=== PATIENT | female | born 1975 | race Caucasian/White ===

== ENCOUNTER → 2017-03-06 | Outpatient (CLI) | payer BC ==
[~2017-03-06] MED LIST: CATAFLAM50 MG PO; Copaxone 20M20 MG/ML IM; HYDROCODONE BIT1 T11 PO; PROVIGIL200 MG PO; VITAMIN D5000 I2 PO
== END | disposition home or self-care (01) ==
LOC: US 01:52
DX: C73 Malignant neoplasm of thyroid gland (principal); E89.0 Postprocedural hypothyroidism

== ENCOUNTER → 2018-03-08 | Outpatient (CLI) | payer BC ==
[2018-03-08 16:47] LABS: BASO # 0.1 10*3/uL (0.0-0.1); BASO % 0.7 % (0.0-1.0); EOS # 0.2 10*3/uL (0.0-0.4); EOS % 1.7 % (1.0-4.0); HEMATOCRIT 46.3 % (37.0-47.0); HEMOGLOBIN 15.3 g/dl (12.0-16.0); LYMPH # 3.6 10*3/uL (1.3-4.4); LYMPH % 28.4 % (27.0-41.0); MEAN CORPUSCULAR HGB 29.1 pg (27.0-31.0); MEAN PLATELET VOLUME 9.2 fl (9.6-12.3); MONO # 0.8 10*3/uL (0.1-1.0); MONO % 6.2 % (3.0-9.0); NEUT # 7.9 10*3/uL (2.3-7.9); NEUT % 62.4 % (47.0-73.0); PLATELET COUNT AUTOMATED 329 10*3/uL (130-400); RED BLOOD COUNT 5.26 10*6/uL (4.10-5.10); WHITE BLOOD COUNT 12.6 10*3/uL (4.8-10.8)
[2018-03-08 17:05] LABS: ALBUMIN 3.7 gm/dl (3.1-4.5); ALKALINE PHOSPHATASE 114 U/L (45-117); BUN 10 mg/dl (7-24); CHLORIDE 106 mmol/L (98-107); CREATININE 0.87 mg/dL (0.55-1.02); IRON 50 ug/dL (50-170); POTASSIUM 4.1 mmol/L (3.5-5.1); SGOT/AST 10 IU/L (3-35); SGPT/ALT 18 U/L (12-78); SODIUM 141 mmol/L (136-145); TOTAL IRON BINDING CAPACITY 391 ug/dl (250-450); TOTAL PROTEIN 7.8 gm/dL (6.4-8.2)
[2018-03-08 17:07] LABS: FREE T4 0.94 ng/dl (0.76-1.46)
[2018-03-08 18:01] LABS: FERRITIN 47.4 ng/mL (10.0-291.0); VITAMIN D, 25-HYDROXY 20.5 ng/mL (30-100)
== END | disposition home or self-care (01) ==
LOC: LAB 16:24
PROVIDERS: Psychiatry & Neurology Neurology
DX: D64.9 Anemia, unspecified (principal); E89.0 Postprocedural hypothyroidism; G35 Multiple sclerosis

== ENCOUNTER → 2020-03-16 | Outpatient (CLI) | payer OTHER | END | disposition home or self-care (01) | LOC: CT 07:41 | DX: C73 Malignant neoplasm of thyroid gland (principal); D72.829 Elevated white blood cell count, unspecified; E89.0 Postprocedural hypothyroidism ==

== ENCOUNTER → 2020-04-01 | Outpatient (CLI) | payer OTHER ==
[2020-04-01 10:47] LABS: BASO # 0.1 10*3/uL (0.0-0.1); BASO % 0.6 % (0.0-1.0); EOS # 0.2 10*3/uL (0.0-0.4); EOS % 1.8 % (1.0-4.0); HEMATOCRIT 44.6 % (37.0-47.0); LYMPH # 3.2 10*3/uL (1.3-4.4); LYMPH % 31.2 % (27.0-41.0); MEAN CELL VOLUME 87.3 fl (81.0-99.0); MEAN CORPUSCULAR HGB 28.6 pg (27.0-31.0); MEAN CORPUSCULAR HGB CONC 32.7 g/dl (33.0-37.0); MEAN PLATELET VOLUME 9.3 fl (9.6-12.3); MONO # 0.7 10*3/uL (0.1-1.0); MONO % 6.3 % (3.0-9.0); NEUT # 6.2 10*3/uL (2.3-7.9); NEUT % 59.7 % (47.0-73.0); PLATELET COUNT AUTOMATED 331 10*3/uL (130-400); RED BLOOD COUNT 5.11 10*6/uL (4.10-5.10); RED CELL DISTRI WIDTH 12.5 % (0-14.5); WHITE BLOOD COUNT 10.4 10*3/uL (4.8-10.8)
[2020-04-01 11:19] LABS: ALBUMIN 3.6 gm/dl (3.1-4.5); ALKALINE PHOSPHATASE 79 U/L (45-117); BUN 10 mg/dl (7-24); CHLORIDE 109 mmol/L (98-107); CREATININE 0.79 mg/dL (0.55-1.02); FREE T4 1.69 ng/dl (0.76-1.46); POTASSIUM 3.8 mmol/L (3.5-5.1); SGOT/AST 8 IU/L (3-35); SGPT/ALT 20 U/L (12-78); SODIUM 138 mmol/L (136-145); TOTAL PROTEIN 7.5 gm/dL (6.4-8.2)
[2020-04-01 11:26] LABS: THYROID STIM HORMONE (HS) 0.214 uIU/ml (0.358-4.75)
== END | disposition home or self-care (01) ==
LOC: LAB 09:56
PROVIDERS: Internal Medicine Hematology & Oncology
DX: C73 Malignant neoplasm of thyroid gland (principal); D72.829 Elevated white blood cell count, unspecified

== ENCOUNTER → 2020-05-03 | Outpatient (CLI) | payer OTHER | END | disposition home or self-care (01) | LOC: CT 05:43 | DX: N20.0 Calculus of kidney (principal); N28.1 Cyst of kidney, acquired; C73 Malignant neoplasm of thyroid gland; D72.829 Elevated white blood cell count, unspecified; D72.820 Lymphocytosis (symptomatic); K82.8 Other specified diseases of gallbladder; Q89.09 Congenital malformations of spleen; Z12.31 Encounter for screening mammogram for malignant neoplasm of breast; Z90.49 Acquired absence of other specified parts of digestive tract ==

== ENCOUNTER 2023-02-20 13:53 | Emergency (ER) | payer OTHER ==
[~2023-02-20] VITALS: Ht 172.7 cm; Wt 113.4 kg
[2023-02-20 14:13] VITALS: BP 159/87
[2023-02-20 15:10] LABS: BASO # 0.1 10*3/uL (0.0-0.1); BASO % 0.4 % (0.0-1.0); EOS # 0.1 10*3/uL (0.0-0.4); HEMATOCRIT 44.9 % (37.0-47.0); LYMPH # 2.9 10*3/uL (1.3-4.4); LYMPH % 23.7 % (27.0-41.0); MEAN CELL VOLUME 87.4 fl (81.0-99.0); MEAN CORPUSCULAR HGB 29.6 pg (27.0-31.0); MEAN CORPUSCULAR HGB CONC 33.9 g/dl (33.0-37.0); MEAN PLATELET VOLUME 9.2 fl (9.6-12.3); MONO # 0.9 10*3/uL (0.1-1.0); NEUT # 8.3 10*3/uL (2.3-7.9); NEUT % 67.3 % (47.0-73.0); PLATELET COUNT AUTOMATED 299 10*3/uL (130-400); RED BLOOD COUNT 5.14 10*6/uL (4.10-5.10); RED CELL DISTRI WIDTH 13.2 % (0-14.5); WHITE BLOOD COUNT 12.4 10*3/uL (4.8-10.8)
[2023-02-20 15:19] LABS: BILIRUBIN Negative (Negative); BLOOD Negative (Negative); CLARITY Cloudy (Clear); COLOR Dark Yellow (Yellow); GLUCOSE Negative (Negative); KETONE Negative (Negative); LEUKO ESTERASE Negative (Negative); NITRITE Negative (Negative); PH 5.5 (4.5-8.0); SPECIFIC GRAVITY 1.025 (1.001-1.030)
[2023-02-20 15:32] LABS: ALKALINE PHOSPHATASE 97 U/L (46-116); BUN 10 mg/dl (9-23); CHLORIDE 103 mmol/L (98-107); LIPASE 28 U/L (12-53); POTASSIUM 3.9 mmol/L (3.4-5.1); SGPT/ALT 27 U/L (10-49); TOTAL PROTEIN 7.3 gm/dL (6.0-8.0)
[2023-02-20 15:37] LABS: BACTERIA 4+
[2023-02-20] MEDS ORDERED: CEPHALEXIN500 M1 PO (17:41)
== END 2023-02-20 18:17 | disposition home or self-care (01) ==
LOC: ED 13:53
PROVIDERS: Nurse Practitioner Family
DX: L02.416 Cutaneous abscess of left lower limb (principal); N39.0 Urinary tract infection, site not specified; Z79.899 Other long term (current) drug therapy; Z90.711 Acquired absence of uterus with remaining cervical stump; Z90.49 Acquired absence of other specified parts of digestive tract

== ENCOUNTER 2024-06-17 19:53 | Emergency (ER) | payer OTHER ==
[~2024-06-17] VITALS: Ht 172.7 cm; Wt 127.0 kg
[~2024-06-17 19:53] MED LIST changes: +CEPHALEXIN500 M1 PO
[2024-06-17] MEDS ORDERED: ATORVASTATIN CA10 M1 PO (20:08)
[2024-06-17] MEDS ORDERED: LISINOPRIL10 M1 PO (20:08)
[2024-06-17] MEDS ORDERED: LEVOTHYROXINE200 MC2 PO (20:09)
[2024-06-17 21:12] VITALS: BP 110/49
== END 2024-06-17 21:15 | disposition home or self-care (01) ==
LOC: ED 19:53
DX: F41.9 Anxiety disorder, unspecified (principal); T50.995A Adverse effect of other drugs, medicaments and biological substances, initial encounter; R07.89 Other chest pain; R06.02 Shortness of breath; Z91.040 Latex allergy status; Z90.49 Acquired absence of other specified parts of digestive tract; Z90.711 Acquired absence of uterus with remaining cervical stump; Z98.890 Other specified postprocedural states; Y92.89 Other specified places as the place of occurrence of the external cause

== ENCOUNTER → 2025-01-18 | Outpatient (CLI) | payer OTHER ==
[~2025-01-18] MED LIST changes: +ATORVASTATIN CA10 M1 PO; +LEVOTHYROXINE200 MC2 PO; +LISINOPRIL10 M1 PO
== END | disposition home or self-care (01) ==
LOC: LAB 09:44
PROVIDERS: ATTEND Nurse Practitioner Family
DX: K52.9 Noninfective gastroenteritis and colitis, unspecified (principal)